=== PATIENT | female | born 1985 | race Caucasian/White ===

== ENCOUNTER 2018-09-24 15:58 | Emergency (ER) | payer SELFPAY ==
[2018-09-24 16:35] LABS: HEMATOCRIT 43.8 % (37.0-47.0); HEMOGLOBIN 13.7 g/dl (12.0-16.0); MEAN CELL VOLUME 87.3 fl (81.0-99.0); MEAN CORPUSCULAR HGB 27.3 pg (27.0-31.0); MEAN CORPUSCULAR HGB CONC 31.3 g/dl (33.0-37.0); MEAN PLATELET VOLUME 11.2 fl (9.6-12.3); PLATELET COUNT AUTOMATED 277 10*3/uL (130-400); RED BLOOD COUNT 5.02 10*6/uL (4.10-5.10); WHITE BLOOD COUNT 17.4 10*3/uL (4.8-10.8)
[2018-09-24 16:48] LABS: ALBUMIN 2.9 gm/dl (3.1-4.5); ALKALINE PHOSPHATASE 48 U/L (45-117); BUN 13 mg/dl (7-24); CHLORIDE 101 mmol/L (98-107); CREATININE 0.81 mg/dL (0.55-1.02); POTASSIUM 3.9 mmol/L (3.5-5.1); SGOT/AST 16 IU/L (3-35); SGPT/ALT 31 U/L (12-78); SODIUM 137 mmol/L (136-145); TOTAL PROTEIN 7.7 gm/dL (6.4-8.2)
[2018-09-24 16:49] LABS: BILIRUBIN NEGATIVE (NEGATIVE); BLOOD NEGATIVE (NEGATIVE); CLARITY SL CLOUDY (CLEAR); COLOR YELLOW (YELLOW); GLUCOSE 3+ (NEGATIVE); KETONE NEGATIVE (NEGATIVE); LEUKO ESTERASE NEGATIVE (NEGATIVE); NITRITE NEGATIVE (NEGATIVE); UROBILINOGEN 0.2 E.U./dl (0.2-1.0)
[2018-09-24 16:50] LABS: ACETAMINOPHEN (TYLENOL) < 5.0 ug/ml (10-30); ETHYL ALCOHOL < 3.0 mg/dl (<3)
[2018-09-24 16:58] LABS: URINE AMPHETAMINES < 1000 (1000ng/ml); URINE BARBITURATES < 200 (200ng/ml); URINE BENZODIAZEPINES < 200 (200ng/ml); URINE CANNABINOIDS (THC) < 50 (50ng/ml); URINE COCAINE < 300 (300ng/ml); URINE METHADONE < 300 (300ng/ml); URINE OPIATES < 300 (300ng/ml); URINE PHENCYCLIDINE < 25 (25ng/ml)
[2018-09-24 17:01] LABS: BACTERIA 1+; WBC 0-2 wbc/hpf (0-5)
[2018-09-24 17:09] LABS: BASOPHILS 1 % (0-1); PLATELET SUFFICIENCY NORMAL (NORMAL); TOTAL CELLS COUNTED 100 #CELLS
[2018-09-24] MEDS ORDERED: VISTARIL25 M2 PO (17:39)
[2018-09-25] MEDS ORDERED: AUGMENTIN 875875 MG PO (02:11)
== END 2018-09-24 17:50 | disposition home or self-care (01) ==
LOC: ED 15:58
PROVIDERS: Nurse Practitioner Family
DX: F41.9 Anxiety disorder, unspecified (principal); H66.93 Otitis media, unspecified, bilateral; F32.9 Major depressive disorder, single episode, unspecified

== ENCOUNTER 2021-07-30 19:56 | Emergency (ER) | payer OTHER ==
[~2021-07-30] VITALS: Ht 162.5 cm; Wt 95.3 kg
[~2021-07-30 19:56] MED LIST: AUGMENTIN 875875 MG PO; VISTARIL25 M2 PO
[2021-07-30] MEDS ORDERED: WELLBUTRIN SR150 MG PO (20:44)
[2021-07-30] MEDS ORDERED: METRONIDAZOLE500 M1 PO (23:35)
[2021-07-30] MEDS ORDERED: CLEOCIN HCL300 MG PO (23:35)
== END 2021-07-31 | disposition home or self-care (01) ==
LOC: ED 19:56
DX: N76.0 Acute vaginitis (principal); L73.2 Hidradenitis suppurativa